=== PATIENT | female | born 1965 | race Caucasian/White ===

== ENCOUNTER 2025-03-01 10:23 | Emergency (ER) | payer OTHER, SELFPAY ==
--- NOTE | ~2025-03-01 | XR_ITS ---
XR hand LT min 3V 03/01/2025 11:01 Indication: Left second finger pain and bruising Procedure: 4 views left hand Comparison: No prior studies for comparison. Findings: Acute minimally displaced proximal marginal fracture of the second proximal phalanx with in tra-articular extension. There is mild polyarticular osteoarthritis. No foreign bodies. Impression: 1: Acute minimally displaced fracture proximal aspect of the left second proximal phalanx along the u lnar base of the phalanx. Reviewed, dictated and finalized at location A. Impression: 1: Acute minimally displaced fracture proximal aspect of the left second proxim al phalanx along the ulnar base of the phalanx.
--- NOTE | 2025-03-01 10:25 | ED_ITS ---
HPI - Extremity Injury (Upper) General Chief Complaint: Extremity Injury, Upper Stated Complaint: Left Hand Swelling Time Seen by Provider: 03/01/25 10:25 Source: patient Mode of arrival: ambulatory Limitations: no limitations History of Present Illness HPI narrative: Patient is a 5-year-old female who presents with left index finger swelling and bruising. Patient states it started yesterday. Unsure of injury to finger. Denies any warmth or redness to area or any open wound. Denies any fever, chills, nausea, vomiting, diarrhea. Denies being bitten by an insect. Related Data Home Medications ?Medication ?Instructions ?Recorded ?Confirmed ?Last Taken ?Type No Home Medications 03/01/25 03/01/25 Unknown History Allergies Allergy/AdvReac Type Severity Reaction Status Date / Time No Known Allergies Allergy Verified 03/01/25 10:44 Review of Systems Review of Systems: All systems reviewed & are unremarkable except as noted in HPI and below Constitutional: Constitutional: Denies body ache(s), Denies chills, Denies fatigue, Denies fever(s), Denies headache(s), Denies malaise and Denies weakness Eyes: Eyes: Denies blurry vision, Denies irritation and Denies loss of vision ENT: Denies otalgia, Denies headache(s), Denies nasal discharge, Denies sinus pain and Denies sore throat Cardiovascular: Cardiovascular: Denies chest pain, Denies irregular heart rhythm and Denies dyspnea Respiratory: Respiratory: Denies dyspnea Gastrointestinal: Gastrointestinal: Denies abdominal pain, Denies melena, Denies hematochezia, Denies diarrhea, Denies nausea and Denies vomiting Musculoskeletal: Musculoskeletal: Denies back pain, Denies myalgias, Reports arthralgias and Reports joint swelling Integumentary/Breasts: Skin/Breast: Denies pruritus and Denies rash Neurologic: Denies headache(s), Denies loss of vision and Denies weakness Psychiatric: Psychiatric: Reports no additional psychiatric complaints Endocrine: Endocrine: Denies fatigue PMFSH Comments At time of signature, agree with nursing past medical, surgical, social and family history. There is no relevant family history pertinent to the presenting complaint. Exam Const: General: cooperative, healthy appearing, comfortable, no acute distress and well nourished Nutritional Appearance: well nourished Orientation/co nsciousness: patient oriented x3 Limitations: no limitations HENMT: Head: normal to inspection, normocephalic and atraumatic Ears: hearing grossly normal bilaterally and external ears normal Face/Nose/Sinus: Normal external nose present, normal facial exam and face symmetric Face and sinus: normal facial exam and face symmetric Mouth: Yes lip normal Eyes: General: appearance normal, both eyes and all related structures Alignment and Position: alignment normal and position normal Periorbital: periorbital findings normal Eyelids: eyelids normal Pupils: Equal, round and reactive pupils present EOM: EOMs intact bilaterally Neck: Neck: normal visual inspection, full ROM and supple Chest: Chest palpation & inspection: normal inspection of the chest Resp: Effort & Inspection: normal respiratory effort and able to speak in complete sentences Auscultation: clear to auscultation bilaterally Cardio: Rate: regular rate Rhythm: regular rhythm Heart sounds: S1 normal heart sound present and S2 normal heart sound present GI: Inspection: normal to inspection Skin: General skin exam: normal color and no rashes or lesions noted Neuro: General: patient oriented x3 and moves all extremities Cranial nerves: Yes Equal, round and reactive pupils present Speech: normal speech Gait exam (Neuro): Normal gait present Extrem: General: normal to inspection, full ROM and no edema Left upper extremity: hand normal capillary refill, neuromotor exam normal Details: wrist extension normal, thumb opposition normal, thumb IP flexion normal, thumb ADduction normal and fingers 2-5 ABduction normal, neurosensory exam normal Details: radial nerve sensory function normal, ulnar nerve sensory function normal, median nerve sensory function normal and digital nerve sensory function normal, tendon exam normal Location: of all digits Details: extensor tendon, flexor digitorum profundus and flexor digitorum superficialis, tenderness of the 2nd digit at the MCP joint and at the proximal phalanx, vascular exam radial pulse present and normal capillary refill, abnormal ROM of finger pain with active ROM of the 2nd digit, swelling of the 2nd digit involving the entire digit and ecchymosis of the palm distally (at base of 2nd digit) and of the 2nd digit at the MCP joint; no unusual warmth Psych: Appearance: grossly normal and well kempt Mental Status: mental status grossly normal Speech and movement: Normal speech and movement present Affect: normal affect Attitude: cooperative Thought process: Normal thought process present Course Course Emergency Course: Patient is aware of diagnosis, understands and agrees to treatment plan. Anticipatory guidance given. Patient agrees to follow-up as directed and is aware of reasons to seek care at the emergency department. Portions of this record may have been created with voice recognition software Level of Care: Express Care Visit Vital Signs Vital signs: Vital Signs Temperature 36.3 C L 03/01/25 10:34 Pulse Rate 81 03/01/25 10:34 Respiratory Rate 16 03/01/25 10:34 Blood Pressure 180/119 H 03/01/25 10:34 Pulse Oximetry 100 03/01/25 10:34 Oxygen Delivery Room Air 03/01/25 10:34 Temperature 36.3 C L 03/01/25 10:34 Pulse Rate 81 03/01/25 10:34 Respiratory Rate 16 03/01/25 10:34 Blood Pressure 157/110 H 03/01/25 11:23 Pulse Oximetry 100 03/01/25 10:34 Oxygen Delivery Room Air 03/01/25 10:34 Reviewed MDM - Extremity Injury (Upper) MDM Narrative Medical decision making narrative: Discussed splinting with patient. Patient wanting minimally splinted. Will [place]-tape and apply middle finger splint extending down to middle of palm to prevent finger bending. Provided patient with PCP and Ortho follow-up. Patient states she has not seen a doctor in over 10 years. Patient states she has vacation next week and then the end of March she is going on a cruise Pt well hydrated appearing, in no respiratory distress, hemodynamically stable. Recommend supportive care. The patient is stable at time of discharge the clinical impression was discussed and the patient was given the opportunity to ask questions, which were addressed as completely as possible given the information available at present. Anticipatory guidance and return to care pr ecautions were discussed and the importance of primary care follow-up was stressed and encouraged. The patient voiced understanding of the plan, indications to return, and the need for follow-up. Exam findings show no acute concerns or changes Patient is appropriate for outpatient treatment and follow-up. Differential Diagnosis Differential diagnosis: Likely finger sprain, fracture of hand and other (Finger fraction) Imaging Data Radiologist's impression: XR hand LT min 3V 03/01/2025 11:01 Indication: Left second finger pain and bruising Procedure: 4 views left hand Comparison: No prior studies for comparison. Findings: Acute minimally displaced proximal marginal fracture of the second proximal phalanx with intra-articular extension. There is mild polyarticular osteoarthritis. No foreign bodies. Impression: 1: Acute minimally displaced fracture proximal aspect of the left second proximal phalanx along the ulnar base of the phalanx. Discharge Plan Discharge Clinical Impression: Finger fracture, left Qualifiers: Encounter type: initial encounter Finger: index finger Fracture type: closed Phalanx: proximal Fracture alignment: displaced Qualified Code(s): S62.611A - Displaced fracture of proximal phalanx of left index finger, initial encounter for closed fracture Patient Disposition: Home Condition: Stable Instructions: Finger Fracture (ED) Additional Instructions: Please rest, ice and elevate the affected extremity. Please take Motrin 600mg every 8 hours, as needed, for pain (take with food). Follow up with Orthopedic Surgery in 1-2 days for further evaluation - please call for an appointment. Keep splint/cast clean, dry and on. Please use garbage bag while showering to keep splint/cast dry. Use sling/crutches. Please go to ER immediately for increased pain, tingling/numbness, swelling, redness, and fever Patient Language: Palestinian Prescriptions: No Action No Home Medications Follow-up/Referrals: Luisito Buckner MD [Physician] - 3 Days (Establish care) Wilton Talavera MD [Physician] - 3 Days (left index finger fracture) Time of Disposition: 11:19
[2025-03-01 10:34] VITALS: BP 180/119; PULSE 81; RESP 16; TEMP 36.3; O2SAT 100
[2025-03-01 11:23] VITALS: BP 157/110
== END 2025-03-01 11:35 | disposition home or self-care (01) ==
PROVIDERS: Emergency Provider Nurse Practitioner Family
DX: S62.611A Displaced fracture of proximal phalanx of left index finger, initial encounter for closed fracture (principal); X58.XXXA Exposure to other specified factors, initial encounter
CPT/HCPCS: 29130; 73130; 99204; G0463